=== PATIENT | female | born 1950 | race Caucasian/White ===

== ENCOUNTER 2016-07-18 16:28 | Emergency (ER) | payer OTHER ==
[2016-07-18 16:37] VITALS: PULSE 69
--- NOTE | 2016-07-18 16:40 | EDPHY ---
H & P Time Seen by Provider: 07/18/16 16:28 HPI/ROS: CHIEF COMPLAINT: Left knee laceration HISTORY OF PRESENT ILLNESS: Patient lost balance and fell against a friend and landed on her knee 2 days ago lacerating it. She had Steri-Strips placed by visiting nurse but presents today for further evaluation. She has been walking on it. Bleeding is controlled. She has minimal pain. REVIEW OF SYSTEMS: Eye: no change in vision ENT: no sore throat Cardiac: no chest pain or syncope Pulmonary: No trouble breathing Abdomen: no vomiting, diarrhea, abdominal pain Musculoskeletal: no back pain or neck pain Skin: Knee laceration in surrounding bruising on the left. Neuro: no headache Constitutional: no fever : no urinary symptoms A comprehensive 10 point review of systems is otherwise negative aside from elements mentioned in the history of present illness. PAST MEDICAL HISTORY: Hypertension, chronic bilateral leg edema Social history: Lives independently, PCP Jessica Juarez. General Appearance: Alert and conversant, cooperative. Eyes: No scleral icterus. ENT, Mouth: Normal mucous membranes. Respiratory: Normal respiratory effort, breath sounds equal, lungs are clear to auscultation. Cardiovascular: Regular rate and rhythm. Gastrointestinal: Abdomen is soft and non tender. Neurological: Alert and oriented x3. Normally conversant. Face symmetric, normal movement and sensation in all extremities. Skin: Warm and dry, no rashes. Musculoskeletal: No spinal tenderness. Normal range of motion of the right knee with very minimal bruising medially but no bony tenderness. Right knee is stable. Range of motion of the left knee but extensive bruising below the left patella into the proximal left lower leg. 2.5 cm transverse laceration over the left knee without surrounding redness or pus or other drainage or lymphangitis. Psychiatric: Not agitated. Emergency Department course/MDM: Patient arrives 48 hours after left knee laceration. Discussed that primary closure I think will have an unacceptably high risk of infection at this time. Anesthetized with 8 mL of 0.5% bupivacaine without epinephrine standard wound care provided, extensive irrigation and sterile dressing. Placed on oral antibiotics and re-evaluate in 72 hours for possible delayed primary closure, because the wound edges do not spontaneously approximate and it is transverse over the flexor surface of her knee. Discussed with patient and consented. Smoking Status: Current some day smoker Constitutional: Initial Vital Signs Temperature (C) 36.9 C 07/18/16 16:28 Heart Rate 69 07/18/16 16:28 Respiratory Rate 18 07/18/16 16:28 Blood Pressure 142/72 H 07/18/16 16:28 O2 Sat (%) 95 07/18/16 16:28 O2 Delivery Mode Room Air Allergies/Adverse Reactions: petrolatum,white [From Petroleum Jelly] Allergy (Verified 01/01/16 14:50) pregabalin [From Lyrica] Allergy (Verified 01/01/16 14:50) farhad chemicals Allergy (Uncoded 05/12/15 13:27) Home Medications: Medication Instructions Recorded ALPRAZolam [Xanax 0.25 MG (*)] 0.5 mg PO DAILY@1300 03/03/14 Allopurinol [Zyloprim] 100 mg PO DAILY@1300 03/03/14 LORazepam [Ativan (*)] 1 mg PO BID@0900,1300 03/03/14 Nadolol 40 mg PO DAILY@0530 03/03/14 Olanzapine [Zyprexa] 5 mg PO DAILY@202903/03/14 Spironolactone [Aldactone] 100 mg PO BID@0530,1700 03/03/14 buPROPion XL [Wellbutrin 150mg XL] 150 mg PO DAILY@0530 03/03/14 Folic Acid [Folic Acid 1 MG (*)] 1 mg PO DAILY 05/10/15 Oxycodone HCl [OXYCODONE HCL] 10 mg PO 0900,1300,1700,202905/10/15 oxyCODONE HCL [Oxycontin] 80 mg PO BID@0530,1700 05/10/15 Bumetanide 0.5 mg PO BID@0530,1700 01/01/16 FLUoxetine [Prozac 20 MG (*)] 20 mg PO DAILY 01/01/16 Levothyroxine Sodium 25 mcg PO DAILY@0530 01/01/16 Potassium Chloride 20 meq PO DAILY 01/01/16 Tadalafil [ADCIRCA] 20 mg PO DAILY 01/01/16 Cephalexin [Keflex] 500 mg PO QID #28 cap 07/18/16 Medical Decision Making - Diagnostics Imaging: Left knee x-ray shows no evidence of fracture or dislocation personally interpreted by myself. - Data Points Medications Given: Discontinued Medications Cephalexin HCl (Keflex) 500 mg PO EDNOW ONE PRN Reason: Protocol Stop: 07/18/16 17:03 Last Admin: 07/18/16 17:10 Dose: 500 mg Departure - Departure Disposition: Home, Routine, Self-Care Clinical Impression: Laceration of knee Qualifiers: Encounter type: initial encounter Laterality: left Qualified Code(s): S81.012A - Laceration without foreign body, left knee, initial encounter Condition: Good Instructions: Laceration (ED) Additional Instructions: Return to the emergency department in 72 hours, on SaturdayJuly 21 before 12 noon for reevaluation and possible sutures. Referrals: Jessica Juarez MD [Primary Care Provider] - As per Instructions Prescriptions: Cephalexin [Keflex] 500 mg PO QID #28 cap
[2016-07-18] MEDS ORDERED: CEPHALEXIN 500 MG CAP PO ONE (17:02)
[2016-07-18 17:52] VITALS: BP 122/82; RESP 14; TEMP 97.5; O2SAT 98
== END 2016-07-18 17:19 | disposition home or self-care (01) ==
LOC: EDUNIT#
DX: S81.012A Laceration without foreign body, left knee, initial encounter (principal); I10 Essential (primary) hypertension; F17.200 Nicotine dependence, unspecified, uncomplicated; W19.XXXA Unspecified fall, initial encounter

== ENCOUNTER 2016-07-21 09:03 | Emergency (ER) | payer OTHER ==
[2016-07-21 09:13] VITALS: BP 158/80; PULSE 79; RESP 18; TEMP 97.7; O2SAT 91
--- NOTE | 2016-07-21 09:47 | EDPHY ---
General Narrative: CHIEF COMPLAINT: knee laceration HISTORY OF PRESENT ILLNESS: patient is here for recheck of her wound. She sustained a wound 7 days ago with a mechanical fall. She was seen here on Saturday. The knee was addressed with antibiosis and dressing. She was to return here for re-examination and for consideration of delayed closure. She has had no new complaints since the time of discharge on Saturday. She has some pain but no new swelling, redness. No pain or swelling of the calf. No numbness or tingling beyond the wound. She has been taking the Keflex as prescribed. No other associated complaints or modifying factors. She does have a home health nurse that comes twice a week. REVIEW OF SYSTEMS: Ten systems reviewed and are negative unless otherwise noted in the HPI EXAMINATION General Appearance: Alert, no distress Cardiovascular: Pulses normal throughout. Symmetric DP and PT pulses at 2+ .Brisk cap refill Neurological: A&O, sensory symmetric, strength symmetric Skin: Warm and dry. There is a 2.5 cm laceration and 1.5 cm laceration parallel to each other on the left anterior knee. There is granulation tissue in the wound bed. No surrounding erythema or purulence. No fluctuance. Surrounding ecchymosis in various stages of healing. Extremities: Tenderness to palpation of the left knee but range of motion is intact. She does have symmetric pedal edema. No evidence of DVT by examination Psychiatric: Mood and affect normal DIFFERENTIAL DIAGNOSES: Including but not limited to Knee laceration, contusion, knee injury, delayed wound healing MDM: 9:45 a.m. left knee wound the patient is here for a dressing change for. She has no new complaints. No pain, redness or swelling of the calf. No neuro changes distal to the injury. She felt that she was told to come back for wound check and dressing change. The wound appears consistent with previous documentation. I feel the wound is too edematous to attempt suture repair. There is already a granulation in the wound bed. We will re-dress the wound and discharge her home. She is to continue dressing changes once daily. She is to follow up with primary care physician with the outpatient wound care for ongoing management as this is a closure by secondary intention. No signs of infection and she is on Keflex. She was to return to the ER for worsening pain, Fever, redness, swelling or difficulty bending the knee. patient and her family member bedside are comfortable with this plan and she is discharged home in stable condition with wound care instructions. ED Precautions: Worsening pain. Erythema, edema, cyanosis, pallor, paresthesia or anesthesia. SUPERVISION: This patient was independently evaluated without the aide of supervising physician. - History Smoking Status: Current some day smoker - Objective Vital Signs: Initial Vital Signs Temperature (C) 97.7 F 07/21/16 09:05 Heart Rate 79 07/21/16 09:05 Respiratory Rate 18 07/21/16 09:05 Blood Pressure 158/80 H 07/21/16 09:05 O2 Sat (%) 91 L 07/21/16 09:05 O2 Delivery Mode Room Air Allergies/Adverse Reactions: petrolatum,white [From Petroleum Jelly] Allergy (Verified 01/01/16 14:50) pregabalin [From Lyrica] Allergy (Verified 01/01/16 14:50) farhad chemicals Allergy (Uncoded 05/12/15 13:27) Home Medications: Medication Instructions Recorded ALPRAZolam [Xanax 0.25 MG (*)] 0.5 mg PO DAILY@1300 03/03/14 Allopurinol [Zyloprim] 100 mg PO DAILY@129903/03/14 LORazepam [Ativan (*)] 1 mg PO BID@0900,1300 03/03/14 Nadolol 40 mg PO DAILY@0503/03/14 Olanzapine [Zyprexa] 5 mg PO DAILY@202903/03/14 Spironolactone [Aldactone] 100 mg PO BID@0530,169903/03/14 buPROPion XL [Wellbutrin 150mg XL] 150 mg PO DAILY@52903/03/14 Folic Acid [Folic Acid 1 MG (*)] 1 mg PO DAILY 05/10/15 Oxycodone HCl [OXYCODONE HCL] 10 mg PO 0900,1300,1700,202905/10/15 oxyCODONE HCL [Oxycontin] 80 mg PO BID@0530,0 05/10/15 Bumetanide 0.5 mg PO BID@0530,1700 01/01/16 FLUoxetine [Prozac 20 MG (*)] 20 mg PO DAILY 01/01/16 Levothyroxine Sodium 25 mcg PO DAILY@0501/01/16 Potassium Chloride 20 meq PO DAILY 01/01/16 Tadalafil [ADCIRCA] 20 mg PO DAILY 01/01/16 Cephalexin [Keflex] 500 mg PO QID #28 cap 07/18/16 Departure - Departure Disposition: Home, Routine, Self-Care Clinical Impression: Laceration of knee Qualifiers: Encounter type: subsequent encounter Laterality: left Qualified Code(s): S81.012D - Laceration without foreign body, left knee, subsequent encounter Condition: Good Instructions: Laceration Without Closure (ED) Additional Instructions: Follow-up with primary care physician and outpatient wound care. Return to the ER for worsening pain, redness, calf pain or tenderness, fever, shortness of breath or chest pain Referrals: Jessica Juarez MD [Primary Care Provider] - As per Instructions [facility] [Clinic] - As per Instructions
== END 2016-07-21 09:50 | disposition home or self-care (01) ==
DX: S81.012D Laceration without foreign body, left knee, subsequent encounter (principal); F17.200 Nicotine dependence, unspecified, uncomplicated; W18.39XD Other fall on same level, subsequent encounter

== ENCOUNTER → 2017-01-23 | Outpatient (CLI) | payer OTHER | LOC: FIMAGING 09:31 | PROVIDERS: ATTEND Internal Medicine Nephrology | DX: N17.9 Acute kidney failure, unspecified (principal) | CPT/HCPCS: 82595-90; 83516-90; 83520-90; 84166-90; 86334-90 ==

== ENCOUNTER → 2017-03-21 | Outpatient (CLI) | payer OTHER | LOC: GIMAGING 20:08 | PROVIDERS: ATTEND Registered Nurse | DX: S62.616A Displaced fracture of proximal phalanx of right little finger, initial encounter for closed fracture (principal) ==

== ENCOUNTER → 2017-09-23 | Outpatient (CLI) | payer OTHER | LOC: FIMAGING 10:40 | PROVIDERS: ATTEND Internal Medicine | DX: E21.3 Hyperparathyroidism, unspecified (principal); R93.8 Abnormal findings on diagnostic imaging of other specified body structures | CPT/HCPCS: 78070; A9500 ==